=== PATIENT | male | born 1940 | race Caucasian/White ===

== ENCOUNTER → 2018-10-09 | Day surgery (SDC) | payer MEDICARE ==
[2018-10-04 10:02] LABS: BASOPHILS # (AUTO) 0.1 (0.0-0.1); BASOPHILS % 0.7 % (0.0-1.0); EOSINOPHILS # (AUTO) 0.5 (0.0-0.4); EOSINOPHILS % 7.3 % (0.0-6.0); HEMATOCRIT 41.8 % (38.2-49.6); HEMOGLOBIN 14.5 g/dL (14.0-18.0); LYMPHOCYTES # (AUTO) 1.8 (1.0-3.2); LYMPHOCYTES % 23.6 % (18.0-39.1); MEAN CORPUSCULAR HGB CONC 34.7 g/dL (31-35); MONOCYTES # (AUTO) 0.8 (0.2-0.8); MONOCYTES % 10.7 % (4.4-11.3); NEUTROPHILS # (AUTO) 4.3 (2.1-6.9); NEUTROPHILS % 57.4 % (38.7-80.0); PLATELET COUNT 170 x10e3/uL (140-360); RED CELL DISTRIBUTION WIDTH 11.9 % (11.7-14.4)
[~2018-10-09] MED LIST: ACETAMINOPHEN500 MG PO; ASPIR 8181 MG PO; AVODART0.5 MG PO; CALCET TABLET1 EACH PO; DIGOXIN125 MCG PO; ENALAPRIL MALEA20 MG PO; FENTANYL CITRATE/PF 100MCG/2 ML INJ ONE; FISH OIL 1,2001 EACH PO; HYOSCYAMINE SULFATE 0.5 MG/ML INJ ONE; MIDAZOLAM HCL 2 MG/2 ML VIAL ONE; PANTOPRAZOLE SO40 MG PO; PHENYLEPHRINE HCL 1% 10 MG/ML VIAL ONE; PROPOFOL IV EMULSION 10 MG/ML 50 ML VIAL ONE; TAMSULOSIN HCL0.4 MG PO; VASOTEC10 M1 PO; VASOTEC10 MG PO; VITAMIN D-32000 UNIT PO; XARELTO15 MG PO; XARELTO20 MG PO
--- OUTSIDE RECORDS SUMMARY | 2018-10-09 06:02 | XMS REPORT | Clinical Summary ---
Author Author [facility] Organization [facility] Address Unknown Phone Unavailable Care Team Providers Care Middle Stitcher Name Role Phone Maura Krishnan MD PCP Allergies No Known Allergies Medications End Date Status Medication Sig Dispensed Refills Start Date Active tamsulosin (FLOMAX) 0.4 Take 1 2 mg capsule capsule by 8 mouth Medrol Dose Pack Scheduling ONLY. Active DIGOX 125 mcg tablet Take 1 tablet 1 by mouth 8 daily. Active dutasteride (AVODART) 0.5 Take 1 3 mg capsule capsule by 8 mouth daily. Active enalapril (VASOTEC) 10 MG Take 10 mg by 2 tablet mouth 2 (two) 8 times a day. Active pantoprazole (PROTONIX) Take 40 mg by 3 40 MG EC tablet mouth daily. 8 Active XARELTO 15 mg tablet Take 15 mg by 2 mouth daily. 8 Active aspirin (ECOTRIN) 81 MG Take 81 mg by 0 enteric coated tablet mouth daily. Active omega-3 fatty acids-fish Take by mouth 0 oil (OMEGA 3 FISH OIL) daily. 684-1,200 mg capsule,delayed release(DR/EC) Active ferrous sulfate (IRON) Take 1 0 325 mg (65 mg iron) capsule by capsule, extended release mouth daily. Active cholecalciferol, vitamin Take 2,000 0 D3, (VITAMIN D3) 2,000 Units by unit capsule capsule mouth daily. Active acetylcarnitine 500 mg Take by 0 capsule mouth. Active acetaminophen (TYLENOL) Take 500 mg 0 500 MG tablet by mouth daily. Active multivit with Take 3 0 iron,minerals (CALCET tablets by PLUS ORAL) mouth as needed. For leg cramps Active Problems Not on file Encounters Care Team Description Date Type Specialty Maura Krishnan MD 09/23/2018 Orders Only Internal Medicine Maura Krishnan MD 09/16/2018 Orders Only Internal Medicine Maura Krishnan MD Essential hypertension (Primary Dx); Gastroesophageal reflux disease, esophagitis presence not specified; Iron deficiency anemia, unspecified iron deficiency anemia type; Need for Streptococcus pneumoniae vaccination; Flu vaccine need; Impacted cerumen of right ear 08/14/2018 Office Visit Internal Medicine after 10/08/2017 Immunizations Name Dates Previously Given Next Due FLUZONE HIGH-DOSE PF 08/14/2018 Pneumococcal Conjugate 08/14/2018 13-Valent Family History Medical History Relation Name Comments Heart disease Brother Hyperlipidemia Brother Hypertension Brother Diabetes Father Heart disease Father Obesity Father Diabetes Mother Heart disease Mother Lymphoma Mother Relation Name Status Comments Brother Alive Father Mother Social History Date Tobacco Use Types Packs/Day Years Used Never Smoker Smokeless Tobacco: Never Used Alcohol Use Drinks/Week oz/Week Comments No Sex Assigned at Date Recorded Not on file Industry Job Start Date Occupation Not on file Not on file Not on file Travel End Travel History Travel Start No recent travel history available. Last Filed Vital Signs Time Taken Vital Sign Reading 08/14/2018 12:49 PM CDT Blood Pressure 137/75 08/14/2018 12:49 PM CDT Pulse 73 08/14/2018 12:49 PM CDT Temperature 36.4 C (97.6 F) 08/14/2018 12:49 PM CDT Respiratory Rate 16 08/14/2018 12:49 PM CDT Oxygen Saturation 96% - Inhaled Oxygen - Concentration 08/14/2018 12:49 PM CDT Weight 81.6 kg (180 lb) 08/14/2018 12:49 PM CDT Height 170.2 cm (5' 7") 08/14/2018 12:49 PM CDT Body Mass Index 28.19 Plan of Treatment Care Team Description Date [place] [address] [place] [address] [phone] 10/17/2018 Office Visit Internal Medicine Health Maintenance Due Date Last Done Comments COLON CANCER SCREENING 1992 SHINGRIX VACCINE (1 of 2) 1992 PNEUMOCOCCAL 2007 POLYSACCHARIDE VACCINE AGE 65 AND OVER ZOSTER VACCINE Addressed 10/10/2016 Overridden with the intention of not completing the topic INFLUENZA VACCINE Completed 08/14/2018 PNEUMOCOCCAL-13 Completed 08/14/2018 Procedures Comments Procedure Name Priority Date/Time Associated Diagnosis [id number] Routine 09/23/2018 FERRITIN LEVEL Routine 09/16/2018 2:53 PM BLOOD BANK CALENDAR CONTROL CLERK CBC WITH PLATELET AND Routine 09/16/2018 DIFFERENTIAL 2:53 PM BLOOD BANK CALENDAR CONTROL CLERK COMPREHENSIVE METABOLIC Routine 09/16/2018 PANEL 2:53 PM BLOOD BANK CALENDAR CONTROL CLERK TOTAL IRON BINDING Routine 09/16/2018 CAPACITY 2:53 PM BLOOD BANK CALENDAR CONTROL CLERK FERRITIN LEVEL Routine 08/14/2018 Iron deficiency anemia, 2:18 PM CDT unspecified iron deficiency anemia type TOTAL IRON BINDING Routine 08/14/2018 Iron deficiency anemia, CAPACITY 2:18 PM CDT unspecified iron deficiency anemia type COMPREHENSIVE METABOLIC Routine 08/14/2018 Iron deficiency anemia, PANEL 2:18 PM CDT unspecified iron deficiency anemia type CBC WITH PLATELET AND Routine 08/14/2018 Iron deficiency anemia, DIFFERENTIAL 2:18 PM CDT unspecified iron deficiency anemia type PNEUMOCOCCAL CONJUGATE Routine 08/14/2018 VACCINE 13-VALENT IM 2:05 PM CDT FLUZONE HIGH-DOSE PF Routine 08/14/2018 (0.5ML SYRINGE) 2:05 PM CDT after 10/08/2017 Results * Miscellaneous Lab Result (09/23/2018) Specimen Blood Narrative Performed At * Total iron binding capacity (09/16/2018 2:53 PM BLOOD BANK CALENDAR CONTROL CLERK) Only the most recent of 2 results within the time period is included. Iron level 166 50 - 180 mcg/dL [facility] Iron binding capacity 345 250 - 425 mcg/dL (calc) [facility] Iron saturation 48 15 - 60 % (calc) [facility] Narrative Performed At FASTING:NO [facility] FASTING: NO Resulting Agency Comment Performing Organization Information: Site ID: [id number] Name: [facility] Address: [address] [place] [id number] Director: Winter Buckley Performing Organization Address City/State/Zipcode Phone Number [facility] [address] [address] * CBC with platelet and differential (09/16/2018 2:53 PM BLOOD BANK CALENDAR CONTROL CLERK) Only the most recent of 2 results within the time period is included. WBC 9.6 3.8 - 10.8 Thousand/uL [facility] RBC 4.68 4.20 - 5.80 Million/uL [facility] HGB 15.4 13.2 - 17.1 g/dL [facility] HCT 44.4 38.5 - 50.0 % [facility] MCV 94.9 80.0 - 100.0 fL [facility] MCH 32.9 27.0 - 33.0 pg [facility] MCHC 34.7 32.0 - 36.0 g/dL [facility] RDW 12.0 11.0 - 15.0 % [facility] Platelet count 189 140 - 400 Thousand/uL [facility] MPV 11.9 7.5 - 12.5 fL [facility] Neutrophils, absolute 4,954 1,500 - 7,800 cells/uL [facility] Lymphocytes, absolute 2,285 850 - 3,900 cells/uL [facility] Monocytes, absolute 835 200 - 950 cells/uL [facility] Eosinophils, absolute 1,421 (H) 15 - 500 cells/uL [facility] Basophils, absolute 106 0 - 200 cells/uL [facility] Neutrophils 51.6 % [facility] Lymphocytes 23.8 % [facility] Monocytes 8.7 % [facility] Eosinophils 14.8 % [facility] Basophils + RC 1.1 % [facility] Narrative Performed At FASTING:NO [facility] FASTING: NO Resulting Agency Comment Performing Organization Information: Site ID: [id number] Name: [facility] Address: [address] [place] [id number] Director: Winter Buckley Performing Organization Address City/[facility]/Zipcode Phone Number [facility] [address] [address] * Ferritin level (09/16/2018 2:53 PM BLOOD BANK CALENDAR CONTROL CLERK) Only the most recent of 2 results within the time period is included. Ferritin level 70 20 - 380 ng/mL [facility] Narrative Performed At FASTING:NO [facility] FASTING: NO Resulting Agency Comment Performing Organization Information: Site ID: [id number] Name: [facility] Address: [address] [place] [phone] Director: Winter Buckley Performing Organization Address City/State/Zipcode Phone Number [facility] [address] [place] [address] * Comprehensive metabolic panel (09/16/2018 2:53 PM BLOOD BANK CALENDAR CONTROL CLERK) Only the most recent of 2 results within the time period is included. Glucose 96 65 - 139 mg/dL [facility] Comment: [facility] Non-fasting reference interval BUN, whole blood 17 7 - 25 mg/dL [facility] Creatinine 1.25 (H) 0.70 - 1.18 mg/dL [facility] Comment: [facility] For patients >49 years of age, the reference limit for Creatinine is approximately 13% higher for people identified as -[place]. EGFR Non-Afr. [place] 56 (L) > OR=60 mL/min/1.73m2 [facility] EGFR 65 > OR=60 mL/min/1.73m2 [facility] BUN/creatinine ratio 14 6 - 22 (calc) [facility] Sodium 140 135 - 146 mmol/L [facility] Potassium 4.5 3.5 - 5.3 mmol/L [facility] Chloride 103 98 - 110 mmol/L [facility] CO2 28 20 - 32 mmol/L [facility] Calcium 9.8 8.6 - 10.3 mg/dL [facility] Protein 7.3 6.1 - 8.1 g/dL [facility] Albumin, S 4.6 3.6 - 5.1 g/dL [facility] Globulin, total 2.7 1.9 - 3.7 g/dL (calc) [facility] Albumin/globulin ratio 1.7 1.0 - 2.5 (calc) [facility] Total bilirubin 1.5 (H) 0.2 - 1.2 mg/dL [facility] Alkaline phosphatase 43 40 - 115 U/L [facility] AST 30 10 - 35 U/L [facility] ALT 49 (H) 9 - 46 U/L [facility] Narrative Performed At FASTING:NO [facility] FASTING: NO Resulting Agency Comment Performing Organization Information: Site ID: [id number] Name: [facility] Address: [address] [place] [phone] Director: Winter Buckley Performing Organization Address City/State/Zipcode Phone Number [facility] [address] [facility] [place] [address] * Fluzone High-Dose PF (0.5mL Syringe) (08/14/2018 2:05 PM CDT) * Pneumococcal conjugate vaccine 13-valent less than 5yo IM (08/14/2018 2:05 PM CDT) after 10/08/2017 Insurance Payer Benefit Subscriber ID Type Phone Address Plan / Group HUMANA MEDICARE HUMANA xxxxxxxxx PPO MEDICARE PPO/PFFS/E [facility] [place] [address] Advance Directives Patient has advance care planning documents on file. For more information, radha vale contact: Gama Johnson [address] [place] [address]
[2018-10-09 08:45] VITALS: BP 114/56
--- NOTE | 2018-10-09 08:51 | Operative Report ---
DATE OF PROCEDURE: October 09, 2018 REFERRING PHYSICIAN: Dr. Chuck Carrasco PROCEDURE PERFORMED: Colonoscopy and polypectomy. INDICATIONS FOR COLONOSCOPY: Surveillance colonoscopy and personal history of colon polyps. MEDICATION: Patient was done under MAC. Please see anesthesiologist's note. PROCEDURE: With the patient in the left lateral decubitus position, the flexible fiberoptic Olympus colonoscope was inserted into the rectum with ease and advanced all the way to the cecum. One polyp was hot biopsied from the cecum. The ascending, transverse, descending, and sigmoid revealed some scattered diverticular disease that was more prominent in the sigmoid colon. One polyp was hot biopsied from the rectum. The scope was then retroflexed into the distal rectum and small internal hemorrhoids were noted, none of which was actively bleeding. There was also some hypertrophic anal papillae. The scope was then straightened out. It was subsequently withdrawn. Patient tolerated the procedure well. IMPRESSION 1. Cecal polyp, hot biopsied. 2. Diverticulosis. 3. Rectal polyp, hot biopsied. 4. Internal hemorrhoids, none actively bleeding. PLAN: Follow up histology. Initiate high-fiber and low-fat diet. Initiate high-fiber supplement. Patient might benefit from a followup colonoscopy in 3-5 years. Job#: [id number] [place] cc:CHUCK CARRASCO DO
== END | disposition home or self-care (01) ==
LOC: OR 05:59
PROVIDERS: ATTEND Internal Medicine Gastroenterology
DX: Z09 Encounter for follow-up examination after completed treatment for conditions other than malignant neoplasm (principal); K63.5 Polyp of colon; K62.1 Rectal polyp; K57.30 Diverticulosis of large intestine without perforation or abscess without bleeding; K64.8 Other hemorrhoids; K62.89 Other specified diseases of anus and rectum; I48.91 Unspecified atrial fibrillation; I12.9 Hypertensive chronic kidney disease with stage 1 through stage 4 chronic kidney disease, or unspecified chronic kidney disease; N18.9 Chronic kidney disease, unspecified; N40.0 Benign prostatic hyperplasia without lower urinary tract symptoms; Z88.1 Allergy status to other antibiotic agents; Z01.810 Encounter for preprocedural cardiovascular examination; Z01.812 Encounter for preprocedural laboratory examination; Z79.02 Long term (current) use of antithrombotics/antiplatelets; Z79.82 Long term (current) use of aspirin; Z85.820 Personal history of malignant melanoma of skin
CPT/HCPCS: 36415; 45384; 85025; 88305; 93005; J1980; J2250; J2370; 45378

== ENCOUNTER → 2019-01-01 | Outpatient (CLI) | payer MEDICARE ==
[~2019-01-01] MED LIST changes: -FENTANYL CITRATE/PF 100MCG/2 ML INJ ONE; +GADOBENATE DIMEGLUMINE 1 ML IV ONE; -HYOSCYAMINE SULFATE 0.5 MG/ML INJ ONE; -MIDAZOLAM HCL 2 MG/2 ML VIAL ONE; -PHENYLEPHRINE HCL 1% 10 MG/ML VIAL ONE; -PROPOFOL IV EMULSION 10 MG/ML 50 ML VIAL ONE
[2019-01-01 11:09] LABS: CREATININE, SERUM 1.35 mg/dL (0.72-1.25)
--- NOTE | 2019-01-03 07:45 | Diagnostic Imaging Report ---
MRI abdomen CPT code: 52801 Indication: ^NEOPLASM OF KIDNEY; right renal mass on ultrasound Technique: Axial T1 nonfat sat in and out of phase, axial T2 fat sat, coronal T2 nonfat sat, axial DWI and ADC MR images of the abdomen were obtained before and after the administration of 17 cc of gadolinium. Axial T1 fat sat GRE dynamic images in precontrast, arterial, venous and delayed phases were obtained. Comparison: CT abdomen/pelvis 05/31/2009 Findings: Liver: There is significant signal loss on opposed phase sequence consistent with steatosis. Calculated hepatic fat percentage is 30%. The right lobe measures 19 cm in length. No evidence of mass. Gallbladder: Present. No wall thickening, gallstone or ductal dilatation. Biliary tree: No intrahepatic or extra hepatic biliary ductal dilatation Pancreas: Normal T1 and T2 signal. No mass or ductal dilatation. Spleen: Normal size and signal. No mass Adrenal glands: No evidence for mass. Kidneys: Right kidney: Peripelvic cysts measure up to 4 mm. No solid mass. Normal enhancement of the parenchyma. No hydronephrosis. Left kidney: A peripelvic cyst in the proximal lower pole measures 4 mm. A lower pole cortical cyst measures 3 mm. There is normal enhancement of the parenchyma. No solid mass or hydronephrosis. Lymph nodes: No enlarged abdominal or periaortic lymph nodes Bowel: Stomach and visualized portions of the small bowel and large bowel are normal in diameter with normal wall thickness. Vasculature: Vascular structures are widely patent and normal in morphology. There is a retroaortic left renal vein. Peritoneum/retroperitoneum: No free fluid or fluid collection. Lung bases: Clear. Bones: Mild levoscoliosis the lumbar spine. Normal marrow signal. No focal osseous lesions. IMPRESSION: 1. Tiny bilateral peripelvic cysts and a subcentimeter lower pole cyst in the left kidney. No suspicious lesions in either kidney. If ultrasound images or a report becomes available, an addendum can be made to this report. 2. Severe steatosis. Hepatomegaly. Signed by: Dr. Oscar Hurd MD on 01/03/2019 7:42 AM
== END ==
LOC: MRI 10:22
PROVIDERS: ATTEND Urology
DX: D41.00 Neoplasm of uncertain behavior of unspecified kidney (principal)
CPT/HCPCS: 36415; 74183; 82565; 84520; A9577

== ENCOUNTER → 2019-07-09 | Outpatient (CLI) | payer MEDICARE ==
[~2019-07-09] MED LIST changes: -GADOBENATE DIMEGLUMINE 1 ML IV ONE
--- NOTE | 2019-07-09 14:42 | Diagnostic Imaging Report ---
EXAM: Renal Ultrasound INDICATION: ^NEOP OF UNCERTAIN BEHAVIOR OF UNSPC'D KIDNEY COMPARISON: None TECHNIQUE: Transverse and longitudinal images of the kidneys and bladder were obtained. FINDINGS: Right Kidney: Length: 9.8 cm Appearance: Normal echogenicity. Collecting system: No hydronephrosis Stones: None Cyst/Mass: None Left Kidney: Length: 10.4 cm Appearance: Normal echogenicity. Collecting system: No hydronephrosis Stones: None Cyst/Mass: Lower pole 7 x 5 x 7 mm simple cyst. Lower pole 4 x 3 x 3 mm exophytic simple cyst. Bladder: No mass or calculus. Bilateral ureteral jets seen. Prevoid volume estimate of 278-cc. Prostate measures 3.9 x 2.7 x 3.2 cm with volume estimate of 17.6 cc. IMPRESSION: No renal calculi or hydronephrosis. Left lower pole simple cysts as above. Signed by: Winifred Barrow MD on 07/09/2019 2:39 PM
== END ==
LOC: US 12:53
PROVIDERS: ATTEND Urology
DX: D41.00 Neoplasm of uncertain behavior of unspecified kidney (principal)
CPT/HCPCS: 76770

== ENCOUNTER → 2021-01-21 | Outpatient (CLI) | payer MEDICARE ==
[~2021-01-21] MED LIST changes: +DIATRIZOATE MEGL/DIATRIZOA SOD 30 ML BTL PO ONE; +IOPAMIDOL 370 MG/ML 200 ML INFUS..BTL INJ ONE; +SODIUM CHLORIDE 0.9% 50ML 50 ML ONE
[2021-01-21 08:38] LABS: CREATININE, SERUM 1.53 mg/dL (0.72-1.25)
== END ==
LOC: CT 07:41
PROVIDERS: ATTEND Internal Medicine Gastroenterology
DX: K42.9 Umbilical hernia without obstruction or gangrene (principal); R14.0 Abdominal distension (gaseous); D64.89 Other specified anemias
CPT/HCPCS: 36415; 74177; 82565; 84520; Q9967

== ENCOUNTER → 2021-02-02 | Day surgery (SDC) | payer MEDICARE ==
[2021-01-28 09:36] LABS: BASOPHILS # (AUTO) 0.1 (0.0-0.1); BASOPHILS % 0.9 % (0.0-1.0); EOSINOPHILS # (AUTO) 0.3 (0.0-0.4); EOSINOPHILS % 4.7 % (0.0-6.0); HEMATOCRIT 42.5 % (38.2-49.6); HEMOGLOBIN 14.3 g/dL (14.0-18.0); LYMPHOCYTES # (AUTO) 1.6 (1.0-3.2); LYMPHOCYTES % 25.1 % (18.0-39.1); MEAN CORPUSCULAR HEMOGLOBIN 31.4 pg (28-32); MEAN CORPUSCULAR HGB CONC 33.6 g/dL (31-35); MEAN CORPUSCULAR VOLUME 93.2 fL (81-99); MONOCYTES # (AUTO) 0.6 (0.2-0.8); MONOCYTES % 9.8 % (4.4-11.3); NEUTROPHILS # (AUTO) 3.8 (2.1-6.9); NEUTROPHILS % 59.2 % (38.7-80.0); PLATELET COUNT 174 x10e3/uL (140-360); RED BLOOD COUNT 4.56 x10e6/uL (4.3-5.7)
[~2021-02-02] MED LIST changes: -DIATRIZOATE MEGL/DIATRIZOA SOD 30 ML BTL PO ONE; +FISH OIL 1,0001 EAC2 PO; -IOPAMIDOL 370 MG/ML 200 ML INFUS..BTL INJ ONE; +IRON PO; +METOPROLOL SUCC25 MG PO; +MIDAZOLAM HCL 2 MG/2 ML VIAL ONE; +MULTAQ400 MG PO; +PROPOFOL IV EMULSION 10 MG/ML 20 ML VIAL ONE; +SIMETHICONE80 MG PO; -SODIUM CHLORIDE 0.9% 50ML 50 ML ONE; +VITAMIN D3250 MC1 PO
[2021-02-02 17:35] VITALS: BP 132/84
== END | disposition home or self-care (01) ==
LOC: OR 12:46
PROVIDERS: ATTEND Internal Medicine Gastroenterology
DX: K29.60 Other gastritis without bleeding (principal); K31.7 Polyp of stomach and duodenum; K20.90 Esophagitis, unspecified without bleeding; K44.9 Diaphragmatic hernia without obstruction or gangrene; D64.89 Other specified anemias; I10 Essential (primary) hypertension; I48.91 Unspecified atrial fibrillation; N40.0 Benign prostatic hyperplasia without lower urinary tract symptoms; K42.9 Umbilical hernia without obstruction or gangrene; Z88.1 Allergy status to other antibiotic agents; Z01.810 Encounter for preprocedural cardiovascular examination; Z01.812 Encounter for preprocedural laboratory examination; Z20.822 Contact with and (suspected) exposure to COVID-19; Z79.02 Long term (current) use of antithrombotics/antiplatelets; Z79.82 Long term (current) use of aspirin; Z68.26 Body mass index [BMI] 26.0-26.9, adult
CPT/HCPCS: 36415; 43239; 85025; 93005; J2250; J2704; U0002